=== PATIENT | male | born 2000 | race Caucasian/White ===

== ENCOUNTER → 2018-05-27 | Outpatient (CLI) | payer SELFPAY ==
[~2018-05-27] MED LIST: MOTRIN400 MG PO
== END | disposition home or self-care (01) ==
LOC: US 17:00
DX: R22.1 Localized swelling, mass and lump, neck (principal)

== ENCOUNTER → 2018-12-27 | Outpatient (CLI) | payer OTHER | END | disposition home or self-care (01) | LOC: CT 09:00 | DX: R59.9 Enlarged lymph nodes, unspecified (principal) ==

== ENCOUNTER → 2020-12-04 | Outpatient (CLI) | payer OTHER ==
[~2020-12-04] MED LIST changes: +PRILOSEC20 M1 PO
== END | disposition home or self-care (01) ==
LOC: RAD 11:11
PROVIDERS: ATTEND Nurse Practitioner Primary Care
DX: R05 Cough (principal); R06.02 Shortness of breath

== ENCOUNTER 2020-12-16 07:26 | Emergency (ER) | payer OTHER ==
[~2020-12-16] VITALS: Ht 187.9 cm; Wt 163.3 kg
[~2020-12-16 07:26] MED LIST changes: -PRILOSEC20 M1 PO
[2020-12-16 07:31] VITALS: BP 151/91
[2020-12-16] MEDS ORDERED: PRILOSEC20 M1 PO (07:32)
[2020-12-16 08:42] LABS: BASO % 0.4 % (0.0-1.0); EOS # 0.2 10*3/uL (0.0-0.4); EOS % 1.9 % (1.0-4.0); HEMATOCRIT 46.2 % (42.0-52.0); LYMPH # 2.5 10*3/uL (1.3-4.4); LYMPH % 24.8 % (27.0-41.0); MEAN CELL VOLUME 85.4 fl (80.0-94.0); MEAN CORPUSCULAR HGB 27.7 pg (27.0-31.0); MEAN CORPUSCULAR HGB CONC 32.5 g/dl (33.0-37.0); MEAN PLATELET VOLUME 10.5 fl (9.6-12.3); MONO # 0.6 10*3/uL (0.1-1.0); MONO % 6.2 % (3.0-9.0); NEUT # 6.7 10*3/uL (2.3-7.9); NEUT % 66.1 % (47.0-73.0); PLATELET COUNT AUTOMATED 310 10*3/uL (130-400); RED BLOOD COUNT 5.41 10*6/uL (4.50-5.90); RED CELL DISTRI WIDTH 13.9 % (0-14.5); WHITE BLOOD COUNT 10.1 10*3/uL (4.8-10.8)
[2020-12-16 08:58] LABS: ALBUMIN 3.9 gm/dl (3.1-4.5); ALKALINE PHOSPHATASE 53 U/L (45-117); BUN 10 mg/dl (7-24); CHLORIDE 109 mmol/L (98-107); CREATININE 1.17 mg/dL (0.70-1.30); POTASSIUM 3.7 mmol/L (3.5-5.1); SGOT/AST 16 IU/L (3-35); SGPT/ALT 35 U/L (12-78); SODIUM 139 mmol/L (136-145); TOTAL PROTEIN 7.8 gm/dL (6.4-8.2)
== END 2020-12-16 10:06 | disposition home or self-care (01) ==
LOC: ED 07:26
PROVIDERS: Emergency Medicine
DX: M25.511 Pain in right shoulder (principal); M25.521 Pain in right elbow; Z91.040 Latex allergy status; Z79.899 Other long term (current) drug therapy

== ENCOUNTER → 2021-09-02 | Outpatient (CLI) | payer OTHER ==
[~2021-09-02] MED LIST changes: +PRILOSEC20 M1 PO
== END | disposition home or self-care (01) ==
LOC: RAD 11:08
PROVIDERS: ATTEND Nurse Practitioner Primary Care
DX: R07.81 Pleurodynia (principal)

== ENCOUNTER 2023-03-13 04:26 | Emergency (ER) | payer OTHER ==
[2023-03-13 04:36] VITALS: BP 166/75
[2023-03-13] MEDS ORDERED: SILVADENE20 GM T (04:41)
== END 2023-03-13 04:44 | disposition home or self-care (01) ==
LOC: ED 04:26
DX: L24.2 Irritant contact dermatitis due to solvents (principal); J45.909 Unspecified asthma, uncomplicated; Z91.040 Latex allergy status; Z88.6 Allergy status to analgesic agent

== ENCOUNTER 2025-08-30 22:06 | Emergency (ER) | payer OTHER ==
[~2025-08-30 22:06] MED LIST changes: +SILVADENE20 GM T
[2025-08-30 22:17] VITALS: BP 144/70
[2025-08-30] MEDS ORDERED: POLYTRIM 1000010 ML OPH (22:26)
[2025-08-30] MEDS ORDERED: Polymyxin B Sulfate/Trimetho 10 ML BOT OPH ONE (22:30)
== END 2025-08-30 22:46 | disposition home or self-care (01) ==
LOC: ED 22:06
DX: H10.9 Unspecified conjunctivitis (principal); J45.909 Unspecified asthma, uncomplicated